=== PATIENT | male | born 1960 | race Caucasian/White ===

== ENCOUNTER 2017-06-30 19:23 | Emergency (ER) | payer OTHER ==
--- NOTE | 2017-06-30 19:41 | Emergency Department Record ---
History of Present Illness - General Chief complaint: Extremity Problem Stated complaint: RT WRIST INJURY Time Seen by Provider: 06/30/17 19:36 Source: Patient Mode of Arrival: Ambulatory Limitations: No limitations - History of Present Illness Initial comments: 57 yo male presents to ED for evaluation of right wrist pain this morning following a trip and fall injury. Patient report swelling and mild pain symptoms, but also reports FROM and able to carry his suitcase without difficulty. Patient denies numbness, tingling, or recent illness. Patient denies other injury or health problems at his baseline. MD Complaint: Extremity pain Onset/Timin -: Hour(s) Location: Right, Hand Severity scale (1-10): 2 Quality: Aching Consistency: Constant Improves with: Nothing Worsens with: Nothing Associated Symptoms: Denies other symptoms - Related Data Home Medications Medication Instructions Recorded Confirmed Last Taken Glatiramer Acetate [Copaxone] 40 mg SQ ASDIR 06/30/17 06/30/17 1 Day Ago ~06/29/17 Levothyroxine Sodium [Synthroid] 25 mcg PO DAILY 06/30/17 06/30/17 1 Day Ago ~06/29/17 Levothyroxine Sodium [Synthroid] 200 mcg PO DAILY 06/30/17 06/30/17 1 Day Ago ~06/29/17 Allergies Allergy/AdvReac Type Severity Reaction Status Date / Time No Known Drug Allergies Allergy Verified 06/30/17 19:34 Travel Screening - Travel/Exposure Within Last 30 Days Have you traveled within the last 30 days?: Yes Location Detail:: [place] - Travel/Exposure Within Last Year Have you traveled outside the [place] in the last year?: No - Additonal Travel Details Have you been exposed to anyone with a communicable illness?: No - Travel Symptoms Symptom Screening: None Review of Systems Constitutional: Denies: Chills, Fever, Malaise, Night sweats Eyes: Denies: Eye discharge, Eye pain ENT: Denies: Congestion, Ear pain, Epistaxis Respiratory: Denies: Cough, Dyspnea Cardiovascular: Denies: Chest pain, Dyspnea on exertion Endocrine: Denies: Fatigue, Heat or cold intolerance Gastrointestinal: Denies: Abdominal pain, Vomiting Genitourinary: Denies: Incontinence, Retention Musculoskeletal: Reports: Arthralgia. Denies: Back pain, Gout, Joint swelling Skin: Denies: Bruising, Change in color Neurological: Denies: Abnormal gait, Confusion, Headache, Seizure Psychiatric: Denies: Anxiety Hematological/Lymphatic: Denies: Anemia, Blood Clots Past Medical History - SOCIAL HISTORY Smoking Status: Never smoker Alcohol Use: Occasional Drug Use Detail:: Marijuana - RESPIRATORY Hx Respiratory Disorders: No - CARDIOVASCULAR Hx Cardio Disorders: No - NEURO Comment:: MS - GI Hx GI Disorders: No - Hx Genitourinary Disorders: No - ENDOCRINE Hx Diabetes: No Hx Thyroid Disease: Yes - PSYCH Hx Psych Problems: No Family Medical History Any Significant Family History?: Yes Physical Exam - General General Appearance: Alert, Oriented x3, Cooperative, No acute distress Limitations: No limitations - Head Head exam: Atraumatic, Normocephalic, Normal inspection Head exam detail: negative: Abrasion, Contusion, Lomax's sign, General tenderness, Hematoma, Laceration - Eye Eye exam: Normal appearance. negative: Conjunctival injection, Periorbital swelling, Periorbital tenderness, Scleral icterus - ENT Ear exam: negative: Auricular hematoma, Auricular trauma Nasal Exam: negative: Active bleeding, Discharge, Dried blood, Foreign body Mouth exam: negative: Drooling, Laceration, Tongue elevation - Neck Neck exam: Normal inspection. negative: Meningismus, Tenderness - Respiratory Respiratory exam: Normal lung sounds bilaterally. negative: Rales, Respiratory distress, Rhonchi, Stridor - Cardiovascular Cardiovascular Exam: Regular rate, Normal rhythm, Normal heart sounds Peripheral Pulses: 3+: Radial (R) - GI/Abdominal GI/Abdominal exam: Soft. negative: Rebound, Rigid, Tenderness - Rectal Rectal exam: Deferred - exam: Deferred - Extremities Extremities exam: Tenderness, Other (Mild STS to the distal right wrist, FROM on examination, denies pain with palpation, no pain over the elbow or shoulder.) . negative: Calf tenderness, Pedal edema - Back Back exam: Denies: CVA tenderness (R), CVA tenderness (L) - Neurological Neurological exam: Alert, Normal gait, Oriented X3 - Psychiatric Psychiatric exam: Normal affect, Normal mood - Skin Skin exam: Normal color. negative: Abrasion Type of lesion: negative: abrasion Course Vital Signs 06/30/17 19:26 Temperature 98.0 F Pulse Rate 59 L Respiratory 16 Rate Blood Pressure 174/91 Pulse Ox 97 - Reevaluation(s) Reevaluation #1: 06/30/17 20:11 Right Wrist: Dorsal chip fracture likely off from the [place]quet[place] Patient was updated on his results, will place in thumb spica splint and refer to Dr. Ruffin for further evaluation. 06/30/17 20:32 Case was discussed with Dr. Ruffin, will see in [facility] office next week. Disposition Disposition: Discharge Clinical Impression: Hand fracture, right Qualifiers: Encounter type: initial encounter Fracture type: closed Qualified Code(s): S62.91XA - Unspecified fracture of right wrist and hand, initial encounter for closed fracture Disposition: Home, Self-Care Condition: (2) Stable Instructions: Wrist Sprain (ED) Additional Instructions: Return to ED if your symptoms worsen or if you have any concerns. Follow-up with Dr. Ruffin in 3-5 days as directed.. Ibuprofen as needed. Referrals: IVOYR RUFFIN M.D. [MEDICAL DOCTOR] - Forms: Patient Portal Access Time of Disposition: 20:13 Quality - Quality Measures Quality Measures: N/A - Blood Pressure Screening Does Patient Have Any of the Following: No Blood Pressure Classification: Hypertensive Reading Systolic Measurement: 174 Diastolic Measurement: 91 Screening for High Blood Pressure: < First Hypertensive BP, F/U Documented > [ [id number]] First Hypertensive Follow-up Interventions: Referral to alternative/primary care provider.
--- NOTE | 2017-07-01 20:34 | RADIOLOGY REPORT ---
EXAM: WRIST, RIGHT 3 VIEWS HISTORY: INJURY. TECHNIQUE: Four views of the right wrist were performed. FINDINGS: There is an ossific density along the dorsal aspect of the wrist suspicious for triquetral fracture deformity. The remainder of the osseous structures are intact. IMPRESSION: FINDINGS SUSPICIOUS FOR A TRIQUETRAL FRACTURE DEFORMITY. JOB NUMBER: [id number] MTDD
== END 2017-06-30 20:37 | disposition home or self-care (01) ==
LOC: ER 19:23
DX: S62.111A Displaced fracture of triquetrum [cuneiform] bone, right wrist, initial encounter for closed fracture (principal); W01.10XA Fall on same level from slipping, tripping and stumbling with subsequent striking against unspecified object, initial encounter
CPT/HCPCS: 99283